=== PATIENT | female | born 1990 | race Caucasian/White ===

== ENCOUNTER 2018-02-22 21:19 | Emergency (ER) | payer OTHER, MEDICAID ==
[2018-02-22] MEDS: predniSONE 20 MG TAB PO (23:41)
[2018-02-22] MEDS: ACETAMINOPHEN 325 MG TAB PO (23:41)
[2018-02-22] MEDS: IPRATROPIUM (NEB) 0.5 MG/2.5 ML AMP INH (23:42)
[2018-02-22] MEDS: ALBUTEROL 0.5% (NEB) 2.5 MG/0.5 ML AMP INH (23:42)
== END 2018-02-23 00:50 | disposition home or self-care (01) ==
LOC: FTE 02-23 00:50
DX: J45.901 Unspecified asthma with (acute) exacerbation (principal)
CPT/HCPCS: 71045; 81025; 94664; 99284-25

== ENCOUNTER 2018-05-30 21:12 | Emergency (ER) | payer OTHER ==
[2018-05-31] MEDS: ONDANSETRON (ODT) 4 MG TAB ODT (00:27)
[2018-05-31 00:39] LABS: ADD MAN DIFF? NO
[2018-05-31 00:45] LABS: WHITE BLOOD COUNT 10.1 10^3/ul (4.8-10.8)
[2018-05-31 00:45] LABS: BASOPHILS % 0.2 % (0.0-2.0); EOSINOPHILS # 0.4 10^3/ul (0.0-0.5); EOSINOPHILS % 4.3 % (0.0-7.0); HEMATOCRIT 37.1 % (37.0-47.0); HEMOGLOBIN 12.6 g/dl (12.0-16.0); LYMPHOCYTES # 1.8 10^3/ul (0.8-2.9); LYMPHOCYTES % 17.7 % (15.0-51.0); MEAN CORPUSCULAR HEMOGLOBIN 30.7 pg (29.0-33.0); MEAN CORPUSCULAR VOLUME 90.5 fl (82.0-101.0); MEAN PLATELET VOLUME 12.8 fl (7.4-10.4); MONOCYTE # 0.8 10^3/ul (0.3-0.9); MONOCYTES % 8.1 % (0.0-11.0); NEUTROPHILS % 69.3 % (39.0-77.0); PLATELET COUNT 146 10^3/UL (140-415); RED CELL DISTRIBUTION WIDTH 13.3 % (11.5-14.5)
[2018-05-31 00:59] LABS: ALANINE AMINOTRANSFERASE 43 IU/L (13-69); ALBUMIN 3.4 g/dl (3.3-4.9); ALBUMIN/GLOBULIN RATIO 0.97; ALKALINE PHOSPHATASE 85 IU/L (42-121); ANION GAP 12 (8-16); ASPARTATE AMINO TRANSFERASE 27 IU/L (15-46); BILIRUBIN,INDIRECT 0.8 mg/dl (0-1.1); BILIRUBIN,TOTAL 0.8 mg/dl (0.2-1.3); BLOOD UREA NITROGEN 13 mg/dl (7-20); CALCIUM 9.8 mg/dl (8.4-10.2); CARBON DIOXIDE 26 mmol/L (21-31); CHLORIDE 103 mmol/L (97-110); CREATININE 0.52 mg/dl (0.44-1.00); GLUCOSE 89 mg/dl (70-220); POTASSIUM 3.5 mmol/L (3.5-5.1); SODIUM 137 mmol/L (135-144); TOTAL PROTEIN 6.9 g/dl (6.1-8.1)
[2018-05-31 01:26] LABS: ADD UMIC YES; UR ASCORBIC ACID NEGATIVE (NEGATIVE); UR BACTERIA FEW /HPF (NONE SEEN); UR BILIRUBIN (Dip) NEGATIVE (NEGATIVE); UR BLOOD (Dip) 1+ mg/dL (NEGATIVE); UR CLARITY SLIGHTLY CLOUDY (CLEAR); UR COLOR YELLOW (YELLOW); UR GLUCOSE (Dip) NEGATIVE (NEGATIVE); UR KETONES (Dip) NEGATIVE (NEGATIVE); UR LEUKOCYTE ESTERASE (Dip) NEGATIVE Leu/ul (NEGATIVE); UR MUCUS FEW /HPF (NONE SEEN); UR NITRITE (Dip) NEGATIVE (NEGATIVE); UR RBC 1 /HPF (0-5); UR SPECIFIC GRAVITY (Dip) 1.023 (1.003-1.030); UR SQUAMOUS EPITHELIAL CELL MODERATE /HPF (FEW); UR TOTAL PROTEIN (Dip) NEGATIVE (NEGATIVE); UR UROBILINOGEN (Dip) NEGATIVE (NEGATIVE); UR WBC 1 /HPF (0-5)
== END 2018-05-31 02:18 | disposition home or self-care (01) ==
LOC: FTE 21:12
DX: O21.0 Mild hyperemesis gravidarum (principal); O26.891 Other specified pregnancy related conditions, first trimester; R10.2 Pelvic and perineal pain; O99.511 Diseases of the respiratory system complicating pregnancy, first trimester; J45.909 Unspecified asthma, uncomplicated; Z3A.12 12 weeks gestation of pregnancy
CPT/HCPCS: 36415; 76801; 80053; 81001; 84702; 85025; 86900; 86901; 99284-25

== ENCOUNTER 2018-07-12 09:38 | Emergency (ER) | payer OTHER ==
[2018-07-12] MEDS: ACETAMINOPHEN 325 MG TAB PO (10:40)
[2018-07-12] MEDS: ONDANSETRON 4 MG INJ IV (10:41)
[2018-07-12] MEDS: SOD CHLORIDE 0.9% 1,000 ML IV (10:41)
[2018-07-12 10:56] LABS: ADD MAN DIFF? NO
[2018-07-12 11:01] LABS: ABNORMAL IP MESSAGE 1; BASOPHILS % 0.3 % (0.0-2.0); EOSINOPHILS # 0.5 10^3/ul (0.0-0.5); EOSINOPHILS % 3.9 % (0.0-7.0); HEMATOCRIT 37.3 % (37.0-47.0); HEMOGLOBIN 12.6 g/dl (12.0-16.0); LYMPHOCYTES # 1.4 10^3/ul (0.8-2.9); LYMPHOCYTES % 12.4 % (15.0-51.0); MEAN CORPUSCULAR HEMOGLOBIN 30.8 pg (29.0-33.0); MEAN CORPUSCULAR HGB CONC 33.8 g/dl (32.0-37.0); MEAN CORPUSCULAR VOLUME 91.2 fl (82.0-101.0); MEAN PLATELET VOLUME 13.4 fl (7.4-10.4); MONOCYTE # 0.8 10^3/ul (0.3-0.9); MONOCYTES % 6.8 % (0.0-11.0); NEUTROPHIL # 8.7 10^3/ul (1.6-7.5); NEUTROPHILS % 75.8 % (39.0-77.0); PLATELET COUNT 147 10^3/UL (140-415); RED BLOOD COUNT 4.09 10^6/ul (4.20-5.40); RED CELL DISTRIBUTION WIDTH 13.5 % (11.5-14.5)
[2018-07-12 11:01] LABS: WHITE BLOOD COUNT 11.5 10^3/ul (4.8-10.8)
[2018-07-12 11:03] LABS: ADD UMIC NO; UR ASCORBIC ACID 20 mg/dL (NEGATIVE); UR BACTERIA FEW /HPF (NONE SEEN); UR BILIRUBIN (Dip) NEGATIVE (NEGATIVE); UR BLOOD (Dip) NEGATIVE (NEGATIVE); UR CLARITY SLIGHTLY CLOUDY (CLEAR); UR COLOR AMBER (YELLOW); UR GLUCOSE (Dip) NEGATIVE (NEGATIVE); UR KETONES (Dip) NEGATIVE (NEGATIVE); UR LEUKOCYTE ESTERASE (Dip) NEGATIVE Leu/ul (NEGATIVE); UR MUCUS MANY /HPF (NONE SEEN); UR NITRITE (Dip) NEGATIVE (NEGATIVE); UR RBC 1 /HPF (0-5); UR SPECIFIC GRAVITY (Dip) 1.028 (1.003-1.030); UR SQUAMOUS EPITHELIAL CELL FEW /HPF (FEW); UR TOTAL PROTEIN (Dip) NEGATIVE (NEGATIVE); UR UROBILINOGEN (Dip) 1+ mg/dL (NEGATIVE); UR WBC 3 /HPF (0-5)
[2018-07-12 11:04] LABS: POSITIVE DIFF @See below
[2018-07-12 11:18] LABS: ALANINE AMINOTRANSFERASE 29 IU/L (13-69); ALBUMIN 4.2 g/dl (3.3-4.9); ALKALINE PHOSPHATASE 91 IU/L (42-121); ANION GAP 12 (5-13); ASPARTATE AMINO TRANSFERASE 20 IU/L (15-46); BILIRUBIN,INDIRECT 0.6 mg/dl (0-1.1); BILIRUBIN,TOTAL 0.6 mg/dl (0.2-1.3); BLOOD UREA NITROGEN 10 mg/dl (7-20); CALCIUM 9.6 mg/dl (8.4-10.2); CARBON DIOXIDE 22 mmol/L (21-31); CHLORIDE 105 mmol/L (97-110); CREATININE 0.39 mg/dl (0.44-1.00); Estimated GFR > 60 mL/min (>60); GLUCOSE 92 mg/dl (70-220); LIPASE 27 U/L (23-300); POTASSIUM 3.7 mmol/L (3.5-5.1); SODIUM 139 mmol/L (135-144); TOTAL PROTEIN 7.2 g/dl (6.1-8.1)
== END 2018-07-12 12:02 | disposition home or self-care (01) ==
LOC: FTE 09:38
DX: O26.892 Other specified pregnancy related conditions, second trimester (principal); R10.2 Pelvic and perineal pain; O99.512 Diseases of the respiratory system complicating pregnancy, second trimester; J45.909 Unspecified asthma, uncomplicated; O21.9 Vomiting of pregnancy, unspecified; Z3A.18 18 weeks gestation of pregnancy
CPT/HCPCS: 76805; 80053; 81001; 81003; 83690; 85025; 96361; 96374; 99285-25

== ENCOUNTER 2018-09-08 11:20 | Outpatient (CLI) | payer OTHER ==
[2018-09-08] MEDS: LACTATED RINGER'S 1,000 ML IV (12:07)
[2018-09-08 12:30] LABS: ADD UMIC NO; UR ASCORBIC ACID NEGATIVE (NEGATIVE); UR BILIRUBIN (Dip) NEGATIVE (NEGATIVE); UR BLOOD (Dip) NEGATIVE (NEGATIVE); UR CLARITY CLEAR (CLEAR); UR COLOR YELLOW (YELLOW); UR GLUCOSE (Dip) NEGATIVE (NEGATIVE); UR KETONES (Dip) NEGATIVE (NEGATIVE); UR LEUKOCYTE ESTERASE (Dip) NEGATIVE Leu/ul (NEGATIVE); UR NITRITE (Dip) NEGATIVE (NEGATIVE); UR SPECIFIC GRAVITY (Dip) 1.018 (1.003-1.030); UR TOTAL PROTEIN (Dip) NEGATIVE (NEGATIVE); UR UROBILINOGEN (Dip) NEGATIVE (NEGATIVE)
[2018-09-08 12:31] LABS: ADD MAN DIFF? NO
[2018-09-08 12:33] LABS: ABNORMAL IP MESSAGE 1; BASOPHILS % 0.3 % (0.0-2.0); EOSINOPHILS # 0.4 10^3/ul (0.0-0.5); EOSINOPHILS % 3.9 % (0.0-7.0); HEMATOCRIT 34.1 % (37.0-47.0); HEMOGLOBIN 11.2 g/dl (12.0-16.0); LYMPHOCYTES # 0.8 10^3/ul (0.8-2.9); LYMPHOCYTES % 7.4 % (15.0-51.0); MEAN CORPUSCULAR HEMOGLOBIN 30.5 pg (29.0-33.0); MEAN CORPUSCULAR HGB CONC 32.8 g/dl (32.0-37.0); MEAN CORPUSCULAR VOLUME 92.9 fl (82.0-101.0); MEAN PLATELET VOLUME 13.2 fl (7.4-10.4); MONOCYTE # 0.8 10^3/ul (0.3-0.9); MONOCYTES % 7.7 % (0.0-11.0); NEUTROPHIL # 8.1 10^3/ul (1.6-7.5); NEUTROPHILS % 78.7 % (39.0-77.0); PLATELET COUNT 119 10^3/UL (140-415); RED BLOOD COUNT 3.67 10^6/ul (4.20-5.40); RED CELL DISTRIBUTION WIDTH 13.2 % (11.5-14.5)
[2018-09-08 12:33] LABS: WHITE BLOOD COUNT 10.3 10^3/ul (4.8-10.8)
[2018-09-08 14:06] LABS: ALANINE AMINOTRANSFERASE 16 IU/L (13-69); ALBUMIN 3.5 g/dl (3.3-4.9); ALBUMIN/GLOBULIN RATIO 1.02; ALKALINE PHOSPHATASE 145 IU/L (42-121); ANION GAP 6 (5-13); ASPARTATE AMINO TRANSFERASE 21 IU/L (15-46); BILIRUBIN,INDIRECT 0.4 mg/dl (0-1.1); BILIRUBIN,TOTAL 0.4 mg/dl (0.2-1.3); BLOOD UREA NITROGEN 10 mg/dl (7-20); CALCIUM 9.4 mg/dl (8.4-10.2); CARBON DIOXIDE 23 mmol/L (21-31); CHLORIDE 108 mmol/L (97-110); CREATININE 0.43 mg/dl (0.44-1.00); Estimated GFR > 60 mL/min (>60); GLUCOSE 83 mg/dl (70-220); POTASSIUM 3.8 mmol/L (3.5-5.1); SODIUM 137 mmol/L (135-144); TOTAL PROTEIN 6.9 g/dl (6.1-8.1)
[2018-09-08] MEDS: ACETAMINOPHEN 500 MG TAB PO (14:15)
== END 2018-09-08 15:30 | disposition home or self-care (01) ==
LOC: OBT 11:20 → L-D 11:21 → OBT 15:30
DX: O26.892 Other specified pregnancy related conditions, second trimester (principal); R51 Headache; R10.9 Unspecified abdominal pain; R42 Dizziness and giddiness; Z3A.26 26 weeks gestation of pregnancy
CPT/HCPCS: 36415; 76815; 76817; 80053; 80076; 81003; 85025; 96360; 96361

== ENCOUNTER 2018-10-16 16:19 | Outpatient (CLI) | payer OTHER ==
[2018-10-16 17:22] LABS: ADD MAN DIFF? NO
[2018-10-16 17:24] LABS: ABNORMAL IP MESSAGE 1; BASOPHILS % 0.3 % (0.0-2.0); EOSINOPHILS # 0.2 10^3/ul (0.0-0.5); EOSINOPHILS % 1.7 % (0.0-7.0); HEMATOCRIT 34.3 % (37.0-47.0); HEMOGLOBIN 11.1 g/dl (12.0-16.0); LYMPHOCYTES % 7.7 % (15.0-51.0); MEAN CORPUSCULAR HEMOGLOBIN 29.3 pg (29.0-33.0); MEAN CORPUSCULAR HGB CONC 32.4 g/dl (32.0-37.0); MEAN CORPUSCULAR VOLUME 90.5 fl (82.0-101.0); MEAN PLATELET VOLUME 13.3 fl (7.4-10.4); MONOCYTES % 7.5 % (0.0-11.0); NEUTROPHIL # 10.3 10^3/ul (1.6-7.5); NEUTROPHILS % 81.6 % (39.0-77.0); PLATELET COUNT 134 10^3/UL (140-415); RED BLOOD COUNT 3.79 10^6/ul (4.20-5.40); RED CELL DISTRIBUTION WIDTH 13.8 % (11.5-14.5)
[2018-10-16 17:24] LABS: WHITE BLOOD COUNT 12.7 10^3/ul (4.8-10.8)
[2018-10-16 17:31] LABS: ADD UMIC NO; UR ASCORBIC ACID NEGATIVE (NEGATIVE); UR BILIRUBIN (Dip) NEGATIVE (NEGATIVE); UR BLOOD (Dip) NEGATIVE (NEGATIVE); UR CLARITY CLEAR (CLEAR); UR COLOR YELLOW (YELLOW); UR GLUCOSE (Dip) NEGATIVE (NEGATIVE); UR KETONES (Dip) NEGATIVE (NEGATIVE); UR LEUKOCYTE ESTERASE (Dip) NEGATIVE Leu/ul (NEGATIVE); UR NITRITE (Dip) NEGATIVE (NEGATIVE); UR SPECIFIC GRAVITY (Dip) 1.021 (1.003-1.030); UR TOTAL PROTEIN (Dip) NEGATIVE (NEGATIVE); UR UROBILINOGEN (Dip) NEGATIVE (NEGATIVE)
[2018-10-16 17:32] LABS: POSITIVE DIFF @See below
[2018-10-16] MEDS: ACETAMINOPHEN 500 MG TAB PO (20:34)
== END 2018-10-16 20:35 | disposition home or self-care (01) ==
LOC: OBT 16:19 → L-D 16:20 → OBT 20:35
DX: O62.9 Abnormality of forces of labor, unspecified (principal); Z3A.31 31 weeks gestation of pregnancy
CPT/HCPCS: 76815; 76817; 76818; 81003; 82731; 85025

== ENCOUNTER 2018-11-16 22:50 | Inpatient (IN) | payer OTHER ==
[2018-11-16] MEDS ORDERED: AL HYDROX/MG HYDROX/SIMETH 30 ML CUP PO (23:30)
[2018-11-16] MEDS ORDERED: ACETAMINOPHEN 325 MG TAB PO (23:30)
[2018-11-17 00:45] LABS: ADD MAN DIFF? NO
[2018-11-17 00:49] LABS: WHITE BLOOD COUNT 8.7 10^3/ul (4.8-10.8)
[2018-11-17 00:49] LABS: ABNORMAL IP MESSAGE 1; BASOPHILS % 0.1 % (0.0-2.0); EOSINOPHILS # 0.2 10^3/ul (0.0-0.5); EOSINOPHILS % 1.7 % (0.0-7.0); HEMATOCRIT 28.5 % (37.0-47.0); HEMOGLOBIN 9.2 g/dl (12.0-16.0); LYMPHOCYTES # 1.4 10^3/ul (0.8-2.9); MEAN CORPUSCULAR HEMOGLOBIN 28.2 pg (29.0-33.0); MEAN CORPUSCULAR HGB CONC 32.3 g/dl (32.0-37.0); MEAN CORPUSCULAR VOLUME 87.4 fl (82.0-101.0); MEAN PLATELET VOLUME 13.2 fl (7.4-10.4); MONOCYTE # 0.8 10^3/ul (0.3-0.9); MONOCYTES % 9.5 % (0.0-11.0); NEUTROPHIL # 6.2 10^3/ul (1.6-7.5); NEUTROPHILS % 71.3 % (39.0-77.0); NUCLEATED RED BLOOD CELLS% 0.2 /100WBC (0.0-0.0); PLATELET COUNT 133 10^3/UL (140-415); RED BLOOD COUNT 3.26 10^6/ul (4.20-5.40); RED CELL DISTRIBUTION WIDTH 14.6 % (11.5-14.5)
[2018-11-17 01:14] LABS: INR 0.92; PROTIME 12.5 Sec (11.9-14.9)
[2018-11-17 01:15] LABS: PARTIAL THROMBOPLASTIN TIME 25.7 Sec (23.0-35.0)
[2018-11-17 01:16] LABS: ALANINE AMINOTRANSFERASE 17 IU/L (13-69); ALBUMIN/GLOBULIN RATIO 0.96; ALKALINE PHOSPHATASE 297 IU/L (42-121); ANION GAP 8 (5-13); ASPARTATE AMINO TRANSFERASE 19 IU/L (15-46); BILIRUBIN,INDIRECT 0.4 mg/dl (0-1.1); BILIRUBIN,TOTAL 0.4 mg/dl (0.2-1.3); BLOOD UREA NITROGEN 13 mg/dl (7-20); CALCIUM 9.1 mg/dl (8.4-10.2); CARBON DIOXIDE 22 mmol/L (21-31); CHLORIDE 106 mmol/L (97-110); CREATININE 0.46 mg/dl (0.44-1.00); Estimated GFR > 60 mL/min (>60); GLUCOSE 109 mg/dl (70-220); POTASSIUM 3.8 mmol/L (3.5-5.1); SODIUM 136 mmol/L (135-144); TOTAL PROTEIN 6.1 g/dl (6.1-8.1); URIC ACID 3.3 mg/dl (3.1-7.9)
[2018-11-17 01:29] LABS: POSITIVE DIFF @See below
[2018-11-17] MEDS: ALBUTEROL HFA 8 GM INHALER INH (01:50)
[2018-11-17] MEDS: BETAMET NA PHOS/AC(6 MG/ML) 2 ML INJ SYG IM (01:51)
[2018-11-17 03:09] LABS: ADD UMIC NO; UR ASCORBIC ACID NEGATIVE (NEGATIVE); UR BILIRUBIN (Dip) NEGATIVE (NEGATIVE); UR BLOOD (Dip) NEGATIVE (NEGATIVE); UR CLARITY CLEAR (CLEAR); UR COLOR YELLOW (YELLOW); UR GLUCOSE (Dip) NEGATIVE (NEGATIVE); UR KETONES (Dip) NEGATIVE (NEGATIVE); UR LEUKOCYTE ESTERASE (Dip) NEGATIVE Leu/ul (NEGATIVE); UR NITRITE (Dip) NEGATIVE (NEGATIVE); UR SPECIFIC GRAVITY (Dip) 1.027 (1.003-1.030); UR TOTAL PROTEIN (Dip) NEGATIVE (NEGATIVE); UR UROBILINOGEN (Dip) NEGATIVE (NEGATIVE)
[2018-11-17] MEDS: URSODIOL 300 MG CAP PO ×3 (08:12→21:11)
[2018-11-17] MEDS: PRENATAL VITAMIN PO (08:12)
[2018-11-17] MEDS: FERROUS SULFATE (EC) 325 MG TAB PO (08:12)
[2018-11-17 16:23] LABS: RAPID PLASMA REAGIN NONREACTIVE (NR)
[2018-11-18] MEDS: BETAMET NA PHOS/AC(6 MG/ML) 2 ML INJ SYG IM (01:10)
[2018-11-18] MEDS: URSODIOL 300 MG CAP PO ×2 (09:17→17:01)
[2018-11-18] MEDS: FERROUS SULFATE (EC) 325 MG TAB PO (09:17)
[2018-11-18] MEDS: PRENATAL VITAMIN PO (09:17)
[2018-11-18] MEDS ORDERED: METHYLERGONOVINE 0.2 MG INJ IM (19:30)
[2018-11-18] MEDS ORDERED: CARBOPROST 250 MCG INJ IM (19:30)
[2018-11-18] MEDS ORDERED: MISOPROSTOL 200 MCG TAB PR (19:30)
[2018-11-18] MEDS ORDERED: OXYTOCIN 30 UNITS/LR 500 ML IV (19:30)
[2018-11-18 21:08] LABS: HEPATITIS B SURFACE ANTIGEN NEGATIVE (NEGATIVE)
[2018-11-19] MEDS: URSODIOL 300 MG CAP PO ×3 (00:45→13:06)
[2018-11-19] MEDS: LACTATED RINGER'S 1,000 ML IV ×3 (04:46→12:48)
[2018-11-19 05:40] LABS: WHITE BLOOD COUNT 11.8 10^3/ul (4.8-10.8)
[2018-11-19 05:40] LABS: ABNORMAL IP MESSAGE 1; HEMATOCRIT 27.3 % (37.0-47.0); HEMOGLOBIN 8.5 g/dl (12.0-16.0); MEAN CORPUSCULAR HEMOGLOBIN 27.6 pg (29.0-33.0); MEAN CORPUSCULAR HGB CONC 31.1 g/dl (32.0-37.0); MEAN CORPUSCULAR VOLUME 88.6 fl (82.0-101.0); MEAN PLATELET VOLUME 13.3 fl (7.4-10.4); NUCLEATED RED BLOOD CELLS% 0.5 /100WBC (0.0-0.0); PLATELET COUNT 125 10^3/UL (140-415); RED BLOOD COUNT 3.08 10^6/ul (4.20-5.40); RED CELL DISTRIBUTION WIDTH 14.9 % (11.5-14.5)
[2018-11-19 05:45] LABS: ADD MAN DIFF? YES; POSITIVE DIFF @See below
[2018-11-19 06:00] LABS: INR 0.91; PARTIAL THROMBOPLASTIN TIME 23.5 Sec (23.0-35.0); PROTIME 12.4 Sec (11.9-14.9)
[2018-11-19] MEDS ORDERED: morphine SULFATE/PF (10 MG/10 ML) INJ (07:30)
[2018-11-19] MEDS ORDERED: MIDAZOLAM 1 MG/ML 2 ML INJ ×3 (07:45)
[2018-11-19 07:47] LABS: ANISOCYTOSIS 1+ (0-0); BAND NEUTROPHILS #M 0.2 10^3/ul (0.0-0.6); BAND NEUTROPHILS % (M) 2 % (0-4); ERYTHROBLAST% (NRBC) (M) 1 % (0-0); GIANT THROMBO% (M) 2 % (0-0); LYMPHOCYTES #M 0.9 10^3/ul (0.8-2.9); LYMPHOCYTES % (M) 8 % (15-51); METAMYELOCYTES #M 0.1 10^3/ul (0.0-0.0); METAMYELOCYTES %M 1 % (0-0); MONOCYTE #M 0.9 10^3/ul (0.3-0.9); MONOCYTES % (M) 8 % (0-11); MYELOCYTES #M 0.1 10^3/ul (0.0-0.0); MYELOCYTES % (M) 1 % (0-0); PLATELET ESTIMATE DECREASED; PLATELET MORPHOLOGY COMMENT @See below; POLYCHROMASIA 2+ (0-0); SEG NEUT #M 9.5 10^3/ul (1.6-7.5); SEGMENTED NEUTROPHILS (M) % 80 % (39-77); SMUDGE%M 4 % (0-0)
[2018-11-19] MEDS ORDERED: ONDANSETRON 4 MG INJ (07:47)
[2018-11-19] MEDS ORDERED: OXYTOCIN 10 UNIT INJ (07:51)
[2018-11-19] MEDS ORDERED: METOCLOPRAMIDE 10 MG INJ (07:51)
[2018-11-19] MEDS ORDERED: HYDROmorphONE 0.5 MG/0.5 ML SYG IV ×2 (08:30)
[2018-11-19] MEDS ORDERED: NALBUPHINE HCL (10 MG/1 ML) INJ IV (08:30)
[2018-11-19] MEDS ORDERED: ZOLPIDEM 5 MG TAB PO (08:30)
[2018-11-19] MEDS ORDERED: MEPERIDINE 25 MG INJ IV (08:30)
[2018-11-19] MEDS ORDERED: DIPHENHYDRAMINE 50 MG INJ IV ×2 (08:30)
[2018-11-19] MEDS: ONDANSETRON 4 MG INJ IV (08:30)
[2018-11-19] MEDS ORDERED: NALOXONE (0.4 MG/ML) INJ IV (08:30)
[2018-11-19] MEDS ORDERED: MIDAZOLAM 1 MG/ML 2 ML INJ IV (08:30)
[2018-11-19] MEDS ORDERED: ONDANSETRON 4 MG INJ IV (08:30)
[2018-11-19] MEDS: PRENATAL VITAMIN PO (09:00)
[2018-11-19] MEDS: FERROUS SULFATE (EC) 325 MG TAB PO (09:00)
[2018-11-19] MEDS: OXYTOCIN 30 UNITS/LR 500 ML IV (09:51)
[2018-11-19] MEDS: KETOROLAC 30 MG INJ IV ×3 (10:22→22:53)
[2018-11-19] MEDS: CLINDAMYCIN 900 MG/D5W (PMX) 50 ML IVPB (10:23)
[2018-11-19] MEDS ORDERED: OXYTOCIN 30 UNITS/LR 500 ML IV ×2 (13:35→14:00)
[2018-11-19] MEDS: IBUPROFEN 800 MG TAB PO ×2 (13:50→22:00)
[2018-11-19] MEDS ORDERED: NACL 0.9% 3 ML SYG IV (14:00)
[2018-11-19] MEDS ORDERED: METHYLERGONOVINE 0.2 MG INJ IM (14:00)
[2018-11-19] MEDS ORDERED: LANOLIN HPA 1 PKT TOP (14:00)
[2018-11-19] MEDS ORDERED: CARBOPROST 250 MCG INJ IM (14:00)
[2018-11-19] MEDS ORDERED: MISOPROSTOL 200 MCG TAB PR (14:00)
[2018-11-19] MEDS ORDERED: NA PHOSPHATE/BIPHOS 133 ML ENEMA PR (14:00)
[2018-11-20] MEDS: LACTATED RINGER'S 1,000 ML IV (02:44)
[2018-11-20 08:04] LABS: WHITE BLOOD COUNT 11.3 10^3/ul (4.8-10.8)
[2018-11-20 08:04] LABS: ABNORMAL IP MESSAGE 1; HEMOGLOBIN 7.2 g/dl (12.0-16.0); MEAN CORPUSCULAR HEMOGLOBIN 28.2 pg (29.0-33.0); MEAN CORPUSCULAR HGB CONC 31.3 g/dl (32.0-37.0); MEAN CORPUSCULAR VOLUME 90.2 fl (82.0-101.0); MEAN PLATELET VOLUME 12.9 fl (7.4-10.4); NUCLEATED RED BLOOD CELLS% 0.4 /100WBC (0.0-0.0); PLATELET COUNT 114 10^3/UL (140-415); RED BLOOD COUNT 2.55 10^6/ul (4.20-5.40); RED CELL DISTRIBUTION WIDTH 15.2 % (11.5-14.5)
[2018-11-20 08:29] LABS: POSITIVE DIFF @See below
[2018-11-20 08:30] LABS: ADD MAN DIFF? YES
[2018-11-20] MEDS: IBUPROFEN 800 MG TAB PO ×3 (08:52→21:48)
[2018-11-20] MEDS: FERROUS SULFATE (EC) 325 MG TAB PO (08:53)
[2018-11-20] MEDS: HYDROCODONE/APAP (5/325) TAB PO ×3 (08:53→18:54)
[2018-11-20 09:33] LABS: ANISOCYTOSIS 1+ (0-0); BAND NEUTROPHILS #M 0.1 10^3/ul (0.0-0.6); BAND NEUTROPHILS % (M) 1 % (0-4); BASOPHIL #M 0.1 10^3/ul (0.0-0.0); BASOPHILS % (M) 1 % (0-2); LYMPHOCYTES #M 1.4 10^3/ul (0.8-2.9); LYMPHOCYTES % (M) 13 % (15-51); MICROCYTOSIS 1+ (0-0); MONOCYTE #M 0.1 10^3/ul (0.3-0.9); MONOCYTES % (M) 1 % (0-11); PLATELET ESTIMATE DECREASED; POLYCHROMASIA 1+ (0-0); SEG NEUT #M 9.5 10^3/ul (1.6-7.5); SEGMENTED NEUTROPHILS (M) % 84 % (39-77); SMUDGE%M 2 % (0-0)
[2018-11-21] MEDS: IBUPROFEN 800 MG TAB PO ×3 (05:42→22:13)
[2018-11-21] MEDS: FERROUS SULFATE (EC) 325 MG TAB PO (09:06)
[2018-11-21] MEDS: HYDROCODONE/APAP (5/325) TAB PO ×2 (09:13→23:46)
[2018-11-21 17:06] LABS: CHENODEOXYCHOLIC ACID 1.7 umol/L (< OR = 3.1); CHOLIC ACID 1.6 umol/L (< OR = 1.8); DEOXYCHOLIC ACID 0.5 umol/L (< OR = 2.4); TOTAL BILE ACIDS 3.8 umol/L (< OR = 6.8)
[2018-11-22] MEDS: IBUPROFEN 800 MG TAB PO ×2 (05:43→13:46)
[2018-11-22] MEDS: FERROUS SULFATE (EC) 325 MG TAB PO (09:14)
[2018-11-22] MEDS: HYDROCODONE/APAP (5/325) TAB PO (09:15)
[2018-11-22] MEDS: MEASLES,MUMPS,RUBELLA VACCINE INJ SC* (09:16)
[2018-11-22] MEDS: DIPHTH/TET/ACEL PERTUSS (ADULT) 0.5 ML VIAL IM* (09:16)
== END 2018-11-22 16:00 | disposition home or self-care (01) | DRG 788 ==
LOC: OBT 22:50 → L-D 22:51 → PP1 11-19 10:38
PROC: 10D00Z1 Extraction of Products of Conception, Low, Open Approach (ICD-10-PCS; principal; 2018-11-19 07:30)
DX: O99.62 Diseases of the digestive system complicating childbirth (principal); K81.9 Cholecystitis, unspecified; Z3A.36 36 weeks gestation of pregnancy; Z37.0 Single live birth; O34.219 Maternal care for unspecified type scar from previous cesarean delivery
CPT/HCPCS: 76815; 76818; 80053; 80076; 81003; 83789; 84560; 85025; 85610; 85730; 86592; 86850; 86900; 86901; 87340; 90686; 99464